=== PATIENT | male | born 1940 | race Caucasian/White ===

== ENCOUNTER 2017-01-04 17:03 | Inpatient (IN) | payer MEDICARE, MEDICAID ==
[~2017-01-04] VITALS: Ht 162.6 cm; Wt 50.8 kg
[2017-01-04] MEDS ORDERED: ONDANSETRON HCL 4MG/2ML VIAL IV PRN (18:15)
[2017-01-04] MEDS ORDERED: ACETAMINOPHEN 650MG SUPP PR PRN (18:15)
[2017-01-04] MEDS ORDERED: DOCUSATE SODIUM 100MG CAPSULE PO PRN (18:15)
[2017-01-04] MEDS ORDERED: CLONIDINE 0.1MG TABLET PO PRN (18:15)
[2017-01-04 18:24] LABS: BASOPHILS % 1.4 % (0.0-2.0); EOSINOPHILS % 0.8 % (0.0-5.0); HEMATOCRIT. 31.9 % (42.0-52.0); HEMOGLOBIN. 10.7 g/dL (14.0-18.0); LYMPHOCYTES % 12.4 % (20.0-50.0); MEAN CORPUSCULAR HEMOGLOBIN 28.9 pg (28.0-32.0); MEAN CORPUSCULAR VOLUME 86.3 fL (80.0-94.0); MEAN PLATELET VOLUME 8.3 fl (7.4-10.4); MONOCYTES % 7.3 % (2.0-8.0); NEUTROPHILS % 78.1 % (40.0-76.0); PLATELET 373 x1000/uL (130-400); RED BLOOD CELL COUNT 3.69 mill/uL (4.7-6.1); RED CELL DISTRIBUTION WIDTH 17.4 % (11.6-14.6)
[2017-01-04 18:28] LABS: INR 1.2; PARTIAL THROMBOPLASTIN TIME 30.5 sec (23.4-31.0); PROTHROMBIN TIME 12.1 sec (9.4-11.6)
[2017-01-04] MEDS: DEXT 5%/0.45% NACL 1000ML 1,000 ML IV SCH (18:29)
[2017-01-04] MEDS ORDERED: HYDROMORPHONE HCL/PF 2MG/ML CPJ IV PRN (19:00)
[2017-01-04 19:24] LABS: CLARITY URINE TURBID (CLEAR); COLOR URINE YELLOW (YELLOW); GLUCOSE URINE NEGATIVE (NEGATIVE); KETONES URINE NEGATIVE (NEGATIVE); LEUKOCYTE ESTERASE URINE 3+ (NEGATIVE); NITRITE URINE POSITIVE (NEGATIVE); OCCULT BLOOD URINE 3+ (NEGATIVE); PH URINE 5.5 (4.5-8.0); PROTEIN URINE 3+ (NEGATIVE)
[2017-01-04] MEDS ORDERED: SODIUM CHLORIDE 0.9% 1,000 ML IV ONE (21:15)
[2017-01-04] MEDS ORDERED: CEFTRIAXONE 1 G PREMIX 50 ML IV NR (21:15)
[2017-01-04 21:25] VITALS: BP 119/69
[2017-01-04 22:43] VITALS: BP 119/69
[2017-01-05] VITALS: BP 120/74
[2017-01-05 04:00] VITALS: BP 122/68
[2017-01-05] MEDS ORDERED: ACET-2178 PO ×2 (05:28→05:29)
[2017-01-05] MEDS ORDERED: AMLO2.5T45 PO (05:31)
[2017-01-05] MEDS ORDERED: BISA10SU8 RC (05:33)
[2017-01-05] MEDS ORDERED: LACT1CAP58 PO (05:34)
[2017-01-05] MEDS ORDERED: DONE5TAB33 PO (05:36)
[2017-01-05] MEDS ORDERED: DOCU-150 PO (05:36)
[2017-01-05] MEDS ORDERED: APIX5TAB PO (05:37)
[2017-01-05] MEDS ORDERED: MEGE400O23 PO (05:38)
[2017-01-05] MEDS ORDERED: MEMA10TA2 PO (05:39)
[2017-01-05] MEDS ORDERED: MULT-1146 PO (05:40)
[2017-01-05] MEDS ORDERED: OMEP40CA34 PO (05:41)
[2017-01-05] MEDS ORDERED: TAMS0.4C31 PO (05:42)
[2017-01-05] MEDS ORDERED: AMPH30CA PO (05:43)
[2017-01-05] MEDS ORDERED: ASCO500C6 PO (05:46)
[2017-01-05] MEDS ORDERED: HYDR-523 PO (05:48)
[2017-01-05] MEDS ORDERED: NYST15OI TP (05:52)
[2017-01-05] MEDS ORDERED: [UNRECOGNIZED DRUG - CODE] PO (05:53)
[2017-01-05] MEDS ORDERED: RANI150C12 PO (05:53)
[2017-01-05] MEDS ORDERED: BUPR300T52 PO (05:54)
[2017-01-05] MEDS ORDERED: BUPR-102 PO (05:56)
[2017-01-05 07:42] LABS: BASOPHILS % 1.2 % (0.0-2.0); EOSINOPHILS % 2.4 % (0.0-5.0); HEMATOCRIT. 30.6 % (42.0-52.0); LYMPHOCYTES % 15.4 % (20.0-50.0); MEAN CORPUSCULAR HEMOGLOBIN 28.2 pg (28.0-32.0); MEAN CORPUSCULAR VOLUME 86.4 fL (80.0-94.0); MEAN PLATELET VOLUME 8.3 fl (7.4-10.4); MONOCYTES % 8.4 % (2.0-8.0); NEUTROPHILS % 72.6 % (40.0-76.0); PLATELET 365 x1000/uL (130-400); RED BLOOD CELL COUNT 3.54 mill/uL (4.7-6.1); RED CELL DISTRIBUTION WIDTH 17.3 % (11.6-14.6)
[2017-01-05] MEDS: DEXT 5%/0.45% NACL 1000ML 1,000 ML IV SCH (07:42)
[2017-01-05 08:00] VITALS: BP 125/74
[2017-01-05 08:17] LABS: CHLORIDE 106 mEq/L (98-107)
[2017-01-05] MEDS: CEFTRIAXONE 1 G PREMIX 50 ML IV SCH (08:33)
[2017-01-05 08:34] LABS: CARBON DIOXIDE 27 mEq/L (21-32); HDL CHOLESTEROL 39 mg/dL (40-59); LDL CHOLESTEROL 60 mg/dL (5-100); TROPONIN I < 0.02 ng/mL (0.00-0.04)
[2017-01-05 16:00] VITALS: BP 110/74
[2017-01-05 20:00] VITALS: BP 115/56
[2017-01-05] MEDS ORDERED: POTASSIUM CHLORIDE INJ 30 MEQ in DEXT 5%/0.9% NACL 1,000 ML IV SCH (20:00)
[2017-01-05] MEDS: DEXT 5%/0.9% NACL 1,000 ML IV SCH (20:12)
[2017-01-06] VITALS: BP 97/57
[2017-01-06 04:00] VITALS: BP 103/68
[2017-01-06] MEDS: CEFTRIAXONE 1 G PREMIX 50 ML IV SCH (05:06)
[2017-01-06 06:23] LABS: BASOPHILS % 1.7 % (0.0-2.0); EOSINOPHILS % 2.7 % (0.0-5.0); HEMATOCRIT. 30.6 % (42.0-52.0); LYMPHOCYTES % 14.8 % (20.0-50.0); MEAN CORPUSCULAR HEMOGLOBIN 28.3 pg (28.0-32.0); MEAN CORPUSCULAR VOLUME 87.1 fL (80.0-94.0); MEAN PLATELET VOLUME 8.5 fl (7.4-10.4); MONOCYTES % 9.7 % (2.0-8.0); NEUTROPHILS % 71.1 % (40.0-76.0); PLATELET 331 x1000/uL (130-400); RED BLOOD CELL COUNT 3.52 mill/uL (4.7-6.1); RED CELL DISTRIBUTION WIDTH 17.9 % (11.6-14.6)
[2017-01-06] MEDS: OMEPRAZOLE 20MG CAPSULE EXTENDED RELEASE PO SCH ×2 (06:24→06:36)
[2017-01-06 07:03] LABS: CARBON DIOXIDE 25 mEq/L (21-32); CHLORIDE 107 mEq/L (98-107)
[2017-01-06 08:14] VITALS: BP 113/62
[2017-01-06] MEDS: DONEPEZIL HCL 10MG TABLET PO SCH (08:53)
[2017-01-06] MEDS: DOCUSATE SODIUM 100MG CAPSULE PO SCH ×2 (08:53→17:00)
[2017-01-06] MEDS: MEGESTROL ACETATE 400 MG/10 ML UDC PO SCH (08:53)
[2017-01-06] MEDS: MEMANTINE HCL 10MG TABLET PO SCH ×2 (08:54→17:00)
[2017-01-06] MEDS: MULTIVITAMINS,THER W-MINERALS TABLET PO SCH (08:54)
[2017-01-06] MEDS: AMLODIPINE 5MG TABLET PO SCH (08:54)
[2017-01-06] MEDS: DEXT 5%/0.9% NACL 1,000 ML IV SCH ×2 (08:56→20:43)
[2017-01-06] MEDS ORDERED: BISACODYL 10MG SUPP RC PRN (09:00)
[2017-01-06] MEDS ORDERED: MEDICATION NOT ON FORMULARY EA (Multivitamin (Multi Vitamin Daily) 1 TAB) PO SCH (09:00)
[2017-01-06] MEDS ORDERED: MEDICATION NOT ON FORMULARY EA (Omeprazole 40 MG) PO SCH (09:00)
[2017-01-06] MEDS ORDERED: SODIUM CHLORIDE 0.9% 10ML VIAL ONE (11:07)
[2017-01-06] MEDS ORDERED: SIMETHICONE 40 MG/0.6 ML 30ML ONE (11:07)
[2017-01-06 12:00] VITALS: BP 140/66
[2017-01-06] MEDS ORDERED: MIDAZOLAM HCL 5 MG/5 ML VIAL ONE (16:25)
[2017-01-06] MEDS ORDERED: FENTANYL CITRATE/PF 50MCG/ML 2ML VIAL ONE (16:25)
[2017-01-06] MEDS ORDERED: MIDAZOLAM HCL 5 MG/5 ML VIAL IV PRN (16:32)
[2017-01-06 16:35] VITALS: BP 98/62
[2017-01-06 20:00] VITALS: BP 131/71
[2017-01-06] MEDS: TAMSULOSIN HCL 0.4MG SR CAPSULE PO SCH (20:43)
[2017-01-07] VITALS: BP 107/64
[2017-01-07 04:00] VITALS: BP 117/63
[2017-01-07] MEDS: CEFTRIAXONE 1 G PREMIX 50 ML IV SCH (05:31)
[2017-01-07] MEDS: OMEPRAZOLE 20MG CAPSULE EXTENDED RELEASE PO SCH (06:10)
[2017-01-07 07:06] LABS: EOSINOPHILS % 0.8 % (0.0-5.0); HEMATOCRIT. 31.6 % (42.0-52.0); HEMOGLOBIN. 10.2 g/dL (14.0-18.0); LYMPHOCYTES % 10.1 % (20.0-50.0); MEAN CORPUSCULAR HEMOGLOBIN 28.1 pg (28.0-32.0); MEAN CORPUSCULAR VOLUME 87.3 fL (80.0-94.0); MEAN PLATELET VOLUME 8.9 fl (7.4-10.4); MONOCYTES % 4.7 % (2.0-8.0); NEUTROPHILS % 83.4 % (40.0-76.0); PLATELET 347 x1000/uL (130-400); RED BLOOD CELL COUNT 3.63 mill/uL (4.7-6.1)
[2017-01-07 07:12] LABS: CARBON DIOXIDE 24 mEq/L (21-32); CHLORIDE 112 mEq/L (98-107)
[2017-01-07 08:00] VITALS: BP 128/50
[2017-01-07] MEDS: AMLODIPINE 5MG TABLET PO SCH (09:00)
[2017-01-07] MEDS: DOCUSATE SODIUM 100MG CAPSULE PO SCH ×2 (09:00→16:56)
[2017-01-07] MEDS: MEGESTROL ACETATE 400 MG/10 ML UDC PO SCH (09:00)
[2017-01-07] MEDS: MULTIVITAMINS,THER W-MINERALS TABLET PO SCH (09:26)
[2017-01-07] MEDS: MEMANTINE HCL 10MG TABLET PO SCH ×2 (09:26→17:26)
[2017-01-07] MEDS: DONEPEZIL HCL 10MG TABLET PO SCH (09:27)
[2017-01-07] MEDS: DEXT 5%/0.9% NACL 1,000 ML IV SCH (09:34)
[2017-01-07 12:41] VITALS: BP 130/51
[2017-01-07 17:21] VITALS: BP 97/53
[2017-01-07 20:00] VITALS: BP 116/77
[2017-01-08] VITALS: BP 120/64
[2017-01-08] MEDS: TAMSULOSIN HCL 0.4MG SR CAPSULE PO SCH ×2 (00:56→20:46)
[2017-01-08] MEDS: DEXT 5%/0.9% NACL 1,000 ML IV SCH ×2 (00:57→14:15)
[2017-01-08 04:00] VITALS: BP 115/69
[2017-01-08] MEDS: CEFTRIAXONE 1 G PREMIX 50 ML IV SCH (05:57)
[2017-01-08 07:22] LABS: EOSINOPHILS % 1.7 % (0.0-5.0); HEMATOCRIT. 28.1 % (42.0-52.0); HEMOGLOBIN. 9.1 g/dL (14.0-18.0); LYMPHOCYTES % 10.8 % (20.0-50.0); MEAN CORPUSCULAR HEMOGLOBIN 28.2 pg (28.0-32.0); MEAN CORPUSCULAR VOLUME 86.6 fL (80.0-94.0); MEAN PLATELET VOLUME 8.3 fl (7.4-10.4); MONOCYTES % 5.7 % (2.0-8.0); NEUTROPHILS % 80.8 % (40.0-76.0); PLATELET 302 x1000/uL (130-400); RED BLOOD CELL COUNT 3.24 mill/uL (4.7-6.1); RED CELL DISTRIBUTION WIDTH 16.8 % (11.6-14.6)
[2017-01-08 07:53] LABS: CARBON DIOXIDE 24 mEq/L (21-32); CHLORIDE 115 mEq/L (98-107)
[2017-01-08 08:00] VITALS: BP 99/71
[2017-01-08] MEDS: MEGESTROL ACETATE 400 MG/10 ML UDC PO SCH (08:48)
[2017-01-08] MEDS: DOCUSATE SODIUM 100MG CAPSULE PO SCH ×2 (08:48→17:00)
[2017-01-08] MEDS: AMLODIPINE 5MG TABLET PO SCH (09:00)
[2017-01-08] MEDS: MULTIVITAMINS,THER W-MINERALS TABLET PO SCH (10:22)
[2017-01-08] MEDS: MEMANTINE HCL 10MG TABLET PO SCH ×2 (10:23→18:10)
[2017-01-08] MEDS: FAMOTIDINE 20MG TABLET PO SCH (10:23)
[2017-01-08] MEDS: DONEPEZIL HCL 10MG TABLET PO SCH (10:23)
[2017-01-08 12:00] VITALS: BP 110/68
[2017-01-08 16:00] VITALS: BP 113/67
[2017-01-08 20:00] VITALS: BP 130/80
[2017-01-09] VITALS: BP 128/73
[2017-01-09 04:00] VITALS: BP 137/80
[2017-01-09] MEDS: CEFTRIAXONE 1 G PREMIX 50 ML IV SCH (05:05)
[2017-01-09 07:28] LABS: BASOPHILS % 0.9 % (0.0-2.0); HEMATOCRIT. 27.5 % (42.0-52.0); HEMOGLOBIN. 8.7 g/dL (14.0-18.0); LYMPHOCYTES % 11.4 % (20.0-50.0); MEAN CORPUSCULAR HEMOGLOBIN 27.9 pg (28.0-32.0); MEAN CORPUSCULAR VOLUME 88.1 fL (80.0-94.0); MEAN PLATELET VOLUME 8.5 fl (7.4-10.4); MONOCYTES % 6.5 % (2.0-8.0); NEUTROPHILS % 79.2 % (40.0-76.0); PLATELET 307 x1000/uL (130-400); RED BLOOD CELL COUNT 3.12 mill/uL (4.7-6.1); RED CELL DISTRIBUTION WIDTH 17.1 % (11.6-14.6)
[2017-01-09 07:42] LABS: CARBON DIOXIDE 22 mEq/L (21-32); CHLORIDE 113 mEq/L (98-107)
[2017-01-09 08:00] VITALS: BP 119/63
[2017-01-09] MEDS: DOCUSATE SODIUM 100MG CAPSULE PO SCH (09:00)
[2017-01-09] MEDS: DONEPEZIL HCL 10MG TABLET PO SCH (09:18)
[2017-01-09] MEDS: MEMANTINE HCL 10MG TABLET PO SCH (09:18)
[2017-01-09] MEDS: FAMOTIDINE 20MG TABLET PO SCH (09:18)
[2017-01-09] MEDS: AMLODIPINE 5MG TABLET PO SCH (09:19)
[2017-01-09] MEDS: MULTIVITAMINS,THER W-MINERALS TABLET PO SCH (09:21)
[2017-01-09 12:00] VITALS: BP 119/57
[2017-01-09 13:32] LABS: TOTAL IRON BINDING CAPACITY 142 ug/dL (250-450)
[2017-01-09 15:03] LABS: FOLIC ACID (FOLATE) SERUM 12.3 ng/mL (>5.38)
[2017-01-09 16:00] VITALS: BP 117/59
[2017-01-09] MEDS ORDERED: DOCUSATE SODIUM SUGAR FREE 100MG/10ML UDC GT PRN (17:00)
[2017-01-09] MEDS: MEMANTINE HCL 5MG TABLET GT SCH (17:43)
[2017-01-09] MEDS: DOCUSATE SODIUM SUGAR FREE 100MG/10ML UDC GT SCH (17:43)
[2017-01-09] MEDS ORDERED: CLONIDINE 0.1MG TABLET GT PRN (18:15)
[2017-01-09 20:00] VITALS: BP 118/68
[2017-01-09] MEDS: TAMSULOSIN HCL 0.4MG SR CAPSULE PO SCH (21:33)
[2017-01-10] VITALS: BP 102/62
[2017-01-10 04:00] VITALS: BP 112/59
[2017-01-10] MEDS: CEFTRIAXONE 1 G PREMIX 50 ML IV SCH (05:51)
[2017-01-10 07:19] LABS: BASOPHILS % 1.4 % (0.0-2.0); EOSINOPHILS % 4.7 % (0.0-5.0); HEMATOCRIT. 27.4 % (42.0-52.0); LYMPHOCYTES % 15.2 % (20.0-50.0); MEAN CORPUSCULAR HEMOGLOBIN 27.8 pg (28.0-32.0); MEAN CORPUSCULAR VOLUME 84.8 fL (80.0-94.0); MEAN PLATELET VOLUME 8.3 fl (7.4-10.4); MONOCYTES % 7.4 % (2.0-8.0); NEUTROPHILS % 71.3 % (40.0-76.0); PLATELET 292 x1000/uL (130-400); RED BLOOD CELL COUNT 3.23 mill/uL (4.7-6.1)
[2017-01-10 08:00] VITALS: BP 120/70
[2017-01-10 08:00] LABS: CARBON DIOXIDE 23 mEq/L (21-32); CHLORIDE 109 mEq/L (98-107); PHOSPHORUS 1.9 mg/dL (2.5-4.9)
[2017-01-10] MEDS: FERROUS SULFATE 300MG/5ML UDC GT SCH ×3 (08:27→17:50)
[2017-01-10] MEDS: DOCUSATE SODIUM SUGAR FREE 100MG/10ML UDC GT SCH ×2 (08:28→17:50)
[2017-01-10] MEDS: MEMANTINE HCL 5MG TABLET GT SCH ×2 (08:28→17:50)
[2017-01-10] MEDS: DONEPEZIL HCL 10MG TABLET GT SCH (08:28)
[2017-01-10] MEDS: MULTIVITAMINS,THER W-MINERALS TABLET GT SCH (08:28)
[2017-01-10] MEDS: FAMOTIDINE 20MG TABLET GT SCH (08:29)
[2017-01-10] MEDS: AMLODIPINE 5MG TABLET GT SCH (08:29)
[2017-01-10 12:00] VITALS: BP 110/70
[2017-01-10] MEDS ORDERED: SODIUM PHOS,M-BASIC-D-BASIC 15 MM in DEXT 5% WATER 245 ML IV NR (12:00)
[2017-01-10 16:00] VITALS: BP 118/81
[2017-01-10] MEDS ORDERED: SORBITOL 70% SOLN 30ML PO NR (16:15)
[2017-01-10 20:00] VITALS: BP 98/56
[2017-01-10] MEDS: TAMSULOSIN HCL 0.4MG SR CAPSULE PO SCH (21:00)
[2017-01-11] VITALS: BP 110/61
[2017-01-11 04:00] VITALS: BP 121/68
[2017-01-11] MEDS: CEFTRIAXONE 1 G PREMIX 50 ML IV SCH (06:28)
[2017-01-11 07:10] LABS: INR 1.2; PARTIAL THROMBOPLASTIN TIME 27.3 sec (23.4-31.0)
[2017-01-11 07:33] LABS: CARBON DIOXIDE 23 mEq/L (21-32); CHLORIDE 107 mEq/L (98-107); PHOSPHORUS 3.2 mg/dL (2.5-4.9)
[2017-01-11 07:47] LABS: BASOPHILS % 1.2 % (0.0-2.0); EOSINOPHILS % 4.8 % (0.0-5.0); HEMATOCRIT. 27.7 % (42.0-52.0); HEMOGLOBIN. 9.2 g/dL (14.0-18.0); LYMPHOCYTES % 17.2 % (20.0-50.0); MEAN CORPUSCULAR HEMOGLOBIN 28.2 pg (28.0-32.0); MEAN CORPUSCULAR VOLUME 84.9 fL (80.0-94.0); MEAN PLATELET VOLUME 8.1 fl (7.4-10.4); MONOCYTES % 8.4 % (2.0-8.0); NEUTROPHILS % 68.4 % (40.0-76.0); PLATELET 302 x1000/uL (130-400); RED BLOOD CELL COUNT 3.26 mill/uL (4.7-6.1); RED CELL DISTRIBUTION WIDTH 16.8 % (11.6-14.6)
[2017-01-11 08:00] VITALS: BP 103/72
[2017-01-11] MEDS: MEMANTINE HCL 5MG TABLET GT SCH ×2 (08:50→18:32)
[2017-01-11] MEDS: FAMOTIDINE 20MG TABLET GT SCH (08:50)
[2017-01-11] MEDS: AMLODIPINE 5MG TABLET GT SCH (08:51)
[2017-01-11] MEDS: FERROUS SULFATE 300MG/5ML UDC GT SCH ×3 (08:54→18:32)
[2017-01-11] MEDS: DONEPEZIL HCL 10MG TABLET GT SCH (08:54)
[2017-01-11] MEDS: MULTIVITAMINS,THER W-MINERALS TABLET GT SCH (08:54)
[2017-01-11] MEDS: DOCUSATE SODIUM SUGAR FREE 100MG/10ML UDC GT SCH ×2 (09:00→17:00)
[2017-01-11 12:00] VITALS: BP 123/71
[2017-01-11 16:00] VITALS: BP 114/72
[2017-01-11 20:00] VITALS: BP 100/62
[2017-01-11] MEDS: TAMSULOSIN HCL 0.4MG SR CAPSULE PO SCH (21:44)
== END 2017-01-11 22:52 | DRG 252 ==
LOC: ER 17:28 → EDBEDREQ 18:11 → ENRESERV 20:04 → 8WST 21:13 → EDBEDREQ 21:17
PROVIDERS: ADMIT Internal Medicine Nephrology; ATTEND Internal Medicine Nephrology
PROC: 3E0G76Z Introduction of Nutritional Substance into Upper GI, Via Natural or Artificial Opening (ICD-10-PCS; 2017-01-06)
PROC: 0DH63UZ Insertion of Feeding Device into Stomach, Percutaneous Approach (ICD-10-PCS; 2017-01-06)
PROC: 06H03DZ Insertion of Intraluminal Device into Inferior Vena Cava, Percutaneous Approach (ICD-10-PCS; principal; 2017-01-11)
DX: I82.412 Acute embolism and thrombosis of left femoral vein (principal); E43 Unspecified severe protein-calorie malnutrition; N17.9 Acute kidney failure, unspecified; E87.0 Hyperosmolality and hypernatremia; E86.0 Dehydration; K22.10 Ulcer of esophagus without bleeding; M41.9 Scoliosis, unspecified; G30.9 Alzheimer's disease, unspecified; D64.9 Anemia, unspecified; F02.80 Dementia in other diseases classified elsewhere, unspecified severity, without behavioral disturbance, psychotic disturbance, mood disturbance, and anxiety; N39.0 Urinary tract infection, site not specified; Z68.1 Body mass index [BMI] 19.9 or less, adult; R62.7 Adult failure to thrive; B96.89 Other specified bacterial agents as the cause of diseases classified elsewhere; K21.9 Gastro-esophageal reflux disease without esophagitis; K29.70 Gastritis, unspecified, without bleeding; E86.9 Volume depletion, unspecified; K56.41 Fecal impaction; K44.9 Diaphragmatic hernia without obstruction or gangrene; E61.1 Iron deficiency; F32.9 Major depressive disorder, single episode, unspecified; Z85.038 Personal history of other malignant neoplasm of large intestine; Z86.718 Personal history of other venous thrombosis and embolism; Z86.711 Personal history of pulmonary embolism; Z87.19 Personal history of other diseases of the digestive system
CPT/HCPCS: 36415; 37191; 71010; 74000; 80048; 80053; 80061; 81001; 82270; 82607; 82728; 82746; 82962; 83540; 83550; 83735; 84100; 84443; 84484; 85025; 85610; 85730; 87040; 87077; 87086; 87186; 92610; 93005; 93970; 96374; 96375; 97163; 97166; 99285; A4216; C1769; C1880; C1893; J0696; J2250; J3010; J3480; J3490; J7030; J7040; J7042; J7060; Q9967; A4315